=== PATIENT | female | born 1980 | race Caucasian/White ===

== ENCOUNTER 2017-10-25 11:21 | Emergency (ER) | payer MEDICAID ==
[~2017-10-25] VITALS: Ht 162.6 cm; Wt 85.0 kg
[~2017-10-25 11:21] MED LIST: ESCI20TA10 PO; LAMO100T6 PO
[2017-10-25 11:24] VITALS: BP 130/87
[2017-10-25 12:33] LABS: MICROSCOPIC AUTO
[2017-10-25 12:37] LABS: CULTURE INDICATED? YES
== END 2017-10-25 14:12 | disposition home or self-care (01) ==
LOC: ED 13:39
DX: N30.01 Acute cystitis with hematuria (principal)
CPT/HCPCS: 76770; 81001; 87086; 99285

== ENCOUNTER 2020-04-10 08:48 | Emergency (ER) | payer MEDICAID ==
[~2020-04-10] VITALS: Ht 162.6 cm; Wt 91.4 kg
[2020-04-10] MEDS ORDERED: NAPROXEN 500 MG TABLET PO ONE (09:30)
[2020-04-10] MEDS ORDERED: CYCLOBENZAPRINE 10 MG TABLET PO ONE (09:30)
[2020-04-10] MEDS ORDERED: CYCLOBENZAPRINE 10 MG TABLET ONE (09:36)
[2020-04-10] MEDS ORDERED: NAPROXEN 500 MG TABLET ONE (09:36)
[2020-04-10 09:41] VITALS: BP 144/91
--- NOTE | 2020-04-10 09:41 | NUR ---
ASSIST RN: PT MEDICATED FOR PAIN WITH ORDERED MEDS. PT BED REPOSITIONED FOR COMFORT. VITALS CHARTED.
--- NOTE | 2020-04-10 10:57 | NUR ---
RECEIVED REPORT FROM ELENI GODDARD. ASSUMING CARE AT THIS TIME.
--- NOTE | 2020-04-10 11:09 | NUR ---
REPORT GIVEN TO YESENIA GODDARD.
[2020-04-10] MEDS ORDERED: KETOROLAC 30 MG/1 ML IM ONE (11:30)
[2020-04-10] MEDS ORDERED: KETOROLAC 30 MG/1 ML ONE (11:46)
--- NOTE | 2020-04-10 11:51 | NUR ---
RIPENING ROOM HAND PER MAR.
== END 2020-04-10 12:12 | disposition home or self-care (01) ==
LOC: ED 09:34
DX: M54.5 Low back pain (principal); G43.909 Migraine, unspecified, not intractable, without status migrainosus; G40.909 Epilepsy, unspecified, not intractable, without status epilepticus; Z90.89 Acquired absence of other organs
CPT/HCPCS: 96372; 99283; J1885